=== PATIENT | male | born 1965 | race Hispanic/Latino ===

== ENCOUNTER 2019-09-11 13:56 | Outpatient (CLI) | payer OTHER ==
--- NOTE | 2019-09-11 15:31 | CT ---
CT Brain WO Con History: Hemorrhagic contusion Comparison: CT brain 2014 Findings: Left MCA territory encephalomalacia. There is also right frontal white matter encephalomala rusty and inferior right frontal lobe encephalomalacia. Ex vacuo dilatation of the ventricular system. No acute hemorrhage or infarct. No midline shift. No mass effect. Senile calcifications of both basal ganglia. The calvarium is intact. Old nasal bone fractures. Mastoids are clear. Old right frontal sinus fractu re. Globes are intact. No retrobulbar hematoma. Impression: Chronic findings. No acute intracranial abnormality.
== END 2019-09-11 13:57 | disposition home or self-care (01) ==
LOC: BICCT 13:56
PROVIDERS: ATTEND Neurological Surgery
DX: R58 Hemorrhage, not elsewhere classified (principal)
CPT/HCPCS: 70450

== ENCOUNTER 2020-07-14 08:25 | Inpatient (IN) | payer OTHER, SELFPAY ==
[2020-07-14] MEDS ORDERED: Lidocaine 1% (PF) 30 ML VIAL ONE ×2 (08:27→08:28)
[2020-07-14] MEDS ORDERED: Sodium Bicarb 50 MEQ/50 ML VIAL ONE (08:33)
[2020-07-14] MEDS ORDERED: Acetaminophen 325 MG Suppository ONE (08:34)
[2020-07-14] MEDS ORDERED: Acetaminophen 650 MG Suppository ONE (08:34)
[2020-07-14 08:53] LABS: Hemoglobin 15.3 g/dL (14.0-18.0); Mean Corpuscular HGB CONC 33.4 g/dL (32.0-36.0); Mean Corpuscular Hemoglobin 32.1 pg (27.0-31.0); Mean Corpuscular Volume 96.1 fL (78.0-98.0); Mean Platelet Volume 8.5 fL (7.4-10.4); Platelet Count 263 thou/uL (130-400); RBC Distribution Width 11.4 % (11.5-14.5); Red Blood Cell (RBC) Count 4.77 mill/uL (4.70-6.10)
[2020-07-14 09:15] LABS: ALT (SGPT) 35 U/L (8-55); AST (SGOT) 53 U/L (5-34); Albumin 3.8 g/dL (3.5-5.0); Alkaline Phosphatase 104 U/L (40-110); BUN (Urea Nitrogen) 6 mg/dL (8.4-25.7); Bilirubin, Total 0.5 mg/dL (0.2-1.2); CK (CPK) 166 U/L (30-200); Calc. Creatinine Clearance 0 mL/min (70-130); Calcium 8.8 mg/dL (7.8-10.44); Carbon Dioxide Less than 8 mmol/L (22-29); Chloride 107 mmol/L (98-107); Estimated GFR-MDRD 46; Globulin 4.2 g/dL (2.4-3.5); Glucose 275 mg/dL (70-105); Lipase 37 U/L (8-78); Potassium 4.2 mmol/L (3.5-5.1); Sodium 141 mmol/L (136-145)
[2020-07-14] MEDS ORDERED: Vancomycin 1 GM/200 ML BAG ONE (09:17)
[2020-07-14] MEDS ORDERED: Piperacillin/Tazobactam 4.5 GM VIAL ONE (09:17)
--- NOTE | 2020-07-14 09:17 | CT ---
CT Brain WO Con HISTORY: Epilepsy. Seizures COMPARISON: 09/11/2019 FINDINGS: Changes of encephalomalacia in the left MCA territory and in the right frontal lobe with ex vacuo dil atation of the ventricular system remains stable. Calcifications in the basal ganglia are again seen. No evidence of acute infarct, hemorrhage, midline shift or abnormal extra-axial fluid collections are seen. The bony calvarium is intact. The visualized paranasal sinuses and mastoid air cells are well-aerated. IMPRESSION: No CT evidence of acute intracranial process.
[2020-07-14 09:26] LABS: Bacteria/HPF None Seen HPF (None Seen); Bilirubin Negative (Negative); Blood, Urine 2+ (Negative); Clarity Turbid (Clear); Glucose, Urine (Dipstick) Normal (Negative); Ketone, Urine Trace mg/dL (Negative); Leukocyte Negative Leu/uL (Negative); Nitrite Negative (Negative); Protein, Urine (Dipstick) 200 mg/dL (Neg-Trace); RBC/HPF 0-3 HPF (0-3); Specific Gravity, Urine 1.011 (1.002-1.036); Squamous Epithelial 0-3 HPF (0-3); Urobilinogen Normal mg/dL (Less than 2); WBC/HPF None Seen HPF (0-3); pH, Urine 5.5 (5.0-9.0)
[2020-07-14 09:38] LABS: Band 14 % (5-11); Lymphocytes 31 % (21-51); MDiff Complete? YES; Metamyelocyte 1 % (0-0); Monocytes 4 % (0-10); Neutrophil 50 % (42-75); Platelet Morphology Comment Appears Adequate; RBC Morphology Normal
[2020-07-14 10:28] LABS: SARS-CoV-2 NAA Rapid Test Not Detected (NotDetected)
--- NOTE | 2020-07-14 10:33 | RAD ---
PORTABLE CHEST: Date: 07/14/2020 HISTORY: Seizure. No comparison. FINDINGS: Heart size upper normal. Mild vascular engorgement. No focal infiltrate or consolidation. I cannot ex clude right basilar atelectasis. No significant effusion apparent. Nonspecific stranding. IMPRESSION: No evidence of acute process. POS: OFF
--- NOTE | 2020-07-14 10:40 | PDOC.HHP ---
Hospitalist HPI - History of Present Illness Seizure History of Present Illness: This is a 54-year-old male patient resident of [facility] with a history of seizures, dementia, anemia and chronic alcoholism was brought into the ED on account of seizures and fever. He has been with a residential apparently since the past 3 days and not much information is known about him. He was found this morning to be having seizures and EMS was activated. There is no clear sign of any prodromal events illness history. He also does not have any immediate family member to be contacted. En route to the ED was noted by EMS to have ST elevations. Received 4 mg of Ativan which stopped his seizures At presentation his blood pressure 100/67, pulse 134, temperature 100.6, labs showed WBC 24.0, hemoglobin 15.3, platelets, bands 14, urine showed no indication of infection, lactic acid was 20.1, BMP sodium 141, potassium 4.3, bicarb less than 8, creatinine 1.59 from a baseline of 0.81 in 2013. Chest x- ray shows no acute changes CT brain shows no evidence of acute intracranial process He was given Keppra 1000 mg IV, vancomycin and Zosyn received 30 mils per KG IV fluids and Tylenol for fevers. Received 2 A of bicarb push. CardiologyDr. Parker was contacted on account of ST changes on EKG however concluded that this was due to right bundle branch block. No concerns for ACS at the moment. Hospitalist consulted for admission Hospitalist ROS - Review of Systems ROS unobtainable: due to mental status Hospitalist History - Past Medical History RIGHT OF WAY CLEARER: reports: Dementia, Seizure - Past Surgical History Other Surgical History: None of note at the moment - Social History Other Social History: Lives in nursing facility. - Exam General - other findings: Patient in bed, generally unresponsive. Eye - other findings: Pupils 4mm. Bilaterally constrict to light Heart: no murmur, no gallops, no rubs Heart - other findings: Tachycardic Respiratory: no wheezes, no rales, no ronchi Gastrointestinal: soft, non-distended, normal bowel sounds Neurological - other findings: Suppressed mentation. Withdraws limbs to painful sternal stimulus Hospitalist Results - Labs Result Diagrams: 07/16/20 15:11 07/17/20 04:53 Lab results: WBC 24.0 thou/uL (4.8-10.8) H 07/14/20 08:34 Hgb 15.3 g/dL (14.0-18.0) 07/14/20 08:34 Hct 45.8 % (42.0-52.0) 07/14/20 08:34 MCV 96.1 fL (78.0-98.0) 07/14/20 08:34 Plt Count 263 thou/uL (130-400) 07/14/20 08:34 Band Neuts % (Manual) 14 % (5-11) H 07/14/20 08:34 Sodium 141 mmol/L (136-145) 07/14/20 08:34 Potassium 4.2 mmol/L (3.5-5.1) 07/14/20 08:34 Chloride 107 mmol/L (98-107) 07/14/20 08:34 Carbon Dioxide Less than 8 mmol/L (22-29) L* 07/14/20 08:34 BUN 6 mg/dL (8.4-25.7) L 07/14/20 08:34 Creatinine 1.59 mg/dL (0.7-1.3) H 07/14/20 08:34 Glucose 275 mg/dL (70-105) H 07/14/20 08:34 Lactic Acid 20.1 mmol/L (0.5-2.2) H* 07/14/20 08:34 Calcium 8.8 mg/dL (7.8-10.44) 07/14/20 08:34 Total Bilirubin 0.5 mg/dL (0.2-1.2) 07/14/20 08:34 AST 53 U/L (5-34) H 07/14/20 08:34 ALT 35 U/L (8-55) 07/14/20 08:34 Alkaline Phosphatase 104 U/L (40-110) 07/14/20 08:34 Creatine Kinase 166 U/L (30-200) 07/14/20 08:34 Troponin I 0.012 ng/mL (< 0.028) 07/14/20 08:34 Serum Total Protein 8.0 g/dL (6.0-8.3) 07/14/20 08:34 Albumin 3.8 g/dL (3.5-5.0) 07/14/20 08:34 Lipase 37 U/L (8-78) 07/14/20 08:34 Urine Ketones Trace mg/dL (Negative) A 07/14/20 09:00 Urine Blood 2+ (Negative) A 07/14/20 09:00 Urine Nitrite Negative (Negative) 07/14/20 09:00 Ur Leukocyte Esterase Negative Maribel/uL (Negative) 07/14/20 09:00 Urine RBC 0-3 HPF (0-3) 07/14/20 09:00 Urine WBC None Seen HPF (0-3) 07/14/20 09:00 Ur Squamous Epith Cells 0-3 HPF (0-3) 07/14/20 09:00 Urine Bacteria None Seen HPF (None Seen) 07/14/20 09:00 Hospitalist H&P A/P - Plan Plan: Is a 54-year-old male patient brought in from a residential on account of seizures. Initial assessment indicate severe sepsis with metabolic encephalopathy. He was admitted to MICU. Acute encephalopathy Seizures versus severe sepsis. Protecting airways for nowno intubation. Also noted improvement since coming to the ED. Check B12, ammonia, alcohol levels, TSH Monitor in MICU Pulmonology consult if deteriorates. Severe sepsis Etiology currently unclear. Endorgan damageencephalopathy/LAMAR Leukocytosis, tachycardia We will continue on vancomycin and Zosyn Blood cultures pending Lactate 20.0we will trend Severe lactic acidosis May be related to sepsis however could also be due to seizures versus alcoholism No indication of recent alcohol use Received 2 A of bicarb in ED Check an ABG. Seizure disorder Given Keppra IVwe will continue We will consider neurology evaluation. LAMAR Likely secondary sepsis Given bolus We will monitor BMP Abnormal EKG changes Wide QRS complex tachycardia with PVCs Cardiology consultedno current concerns for NSTEMI Troponin remains flat. We will continue monitoring. History of alcoholism We will check blood alcohol levels DVT prophylaxisLovenox
[2020-07-14] MEDS ORDERED: levETIRAcetam in NS 100 ML IVPB SCH (11:00)
[2020-07-14 11:48] LABS: Actual Bicarbonate (HCO3a) 20.6 mEq/L (22-28); Analyzer IN Cardio ER; Base Excess (BEa) -2.2 mEq/L (-2.0 to +3.0); Calcium, Ionized (arterial) 1.13 mmol/L (1.12-1.30); Carboxyhemoglobin (COHb) 0.3 gm% (0.0-3.0); Hemoglobin (Hb) 16.2 g/dL (14.0-18.0); O2 Tension (PaO2), arterial 92.9 mmHg (80.0-100.0); Potassium - ABG Lab 3.01 mmol/L (3.70-5.30); pH, Arterial 7.44 (7.35-7.45)
[2020-07-14 11:49] LABS: Puncture Site RRA
[2020-07-14 13:01] LABS: Troponin I 0.264 ng/mL (< 0.028)
[2020-07-14 13:03] LABS: Thyroid Stimulating Hormone 0.7649 uIU/mL (0.35-4.94)
[2020-07-14] MEDS ORDERED: Heparin 10,000 UNITS/ 10 ML VIAL SLOW IVP SCH (14:30)
[2020-07-14] MEDS ORDERED: Heparin 25,000 units/D5W 500 ML IVPB SCH (14:30)
[2020-07-14] MEDS: Sodium Chloride 0.9% 1,000 ML IV SCH (14:31)
[2020-07-14 15:09] LABS: Hemoglobin 15.3 g/dL (14.0-18.0); Platelet Count 190 thou/uL (130-400)
[2020-07-14 15:48] LABS: Troponin I 0.375 ng/mL (< 0.028)
[2020-07-14] MEDS ORDERED: Acetaminophen 650 MG Suppository PR PRN (15:58)
[2020-07-14] MEDS: Piperacillin/Tazobactam 4.5 GM in Sodium Chloride 0.9% 100 ML IVPB SCH (17:07)
[2020-07-14 18:13] LABS: Amphetamine Not Detected (NotDetected); Barbiturates Screen Not Detected (NotDetected); Benzodiazepine Screen Detected (NotDetected); Cocaine Metabolite Screen Not Detected (NotDetected); Medtox Control Line Valid? VALID (VALID); Medtox Reader # READER 1; Methadone Not Detected (NotDetected); Methamphetamine Not Detected (NotDetected); Opiate Screen Not Detected (NotDetected); Oxycodone Screen Not Detected (NotDetected); Phencyclidine (PCP) Not Detected (NotDetected); THC/Cannabinoid Screen Not Detected (NotDetected); Tricyclic Screen Not Detected (NotDetected)
[2020-07-14] MEDS ORDERED: Vancomycin HCl 500 MG in Sodium Chloride 0.9% 100 ML IVPB SCH (19:00)
[2020-07-14] MEDS: levETIRAcetam in NS 1,000 MG in Premix Bag 1 BAG IVPB SCH (20:04)
[2020-07-14] MEDS ORDERED: Vancomycin 1 GM in Premix Bag 1 BAG IVPB SCH (20:15)
[2020-07-14] MEDS ORDERED: Enoxaparin Sodium 30 MG/0.3 ML SYRINGE SC SCH (21:00)
[2020-07-15] MEDS: Piperacillin/Tazobactam 4.5 GM in Sodium Chloride 0.9% 100 ML IVPB SCH ×3 (00:45→17:24)
[2020-07-15 01:34] LABS: PTT 147.1 sec (22.9-36.1)
[2020-07-15 04:14] LABS: Hemoglobin 14.4 g/dL (14.0-18.0); Mean Corpuscular HGB CONC 34.7 g/dL (32.0-36.0); Mean Corpuscular Hemoglobin 32.3 pg (27.0-31.0); Mean Corpuscular Volume 92.9 fL (78.0-98.0); Mean Platelet Volume 8.2 fL (7.4-10.4); Platelet Count 183 thou/uL (130-400); RBC Distribution Width 11.2 % (11.5-14.5); Red Blood Cell (RBC) Count 4.47 mill/uL (4.70-6.10); White Blood Cell (WBC) Count 11.5 thou/uL (4.8-10.8)
[2020-07-15 04:20] LABS: Anion Gap 15 mmol/L (10-20); BUN (Urea Nitrogen) 11 mg/dL (8.4-25.7); Calc. Creatinine Clearance 44 mL/min (70-130); Calcium 8.3 mg/dL (7.8-10.44); Carbon Dioxide 22 mmol/L (22-29); Chloride 111 mmol/L (98-107); Estimated GFR-MDRD 38; Glucose 110 mg/dL (70-105); Potassium 3.5 mmol/L (3.5-5.1); Sodium 144 mmol/L (136-145)
[2020-07-15 05:48] LABS: Band 6 % (5-11); Lymphocytes 16 % (21-51); MDiff Complete? YES; Monocytes 8 % (0-10); Neutrophil 70 % (42-75)
[2020-07-15] MEDS: Sodium Chloride 0.9% 1,000 ML IV SCH (07:36)
[2020-07-15] MEDS: levETIRAcetam in NS 1,000 MG in Premix Bag 1 BAG IVPB SCH ×2 (07:37→21:05)
--- NOTE | 2020-07-15 08:41 | CON ---
DATE OF CONSULTATION: HISTORY OF PRESENT ILLNESS: Bull Dupree is a 54-year-old male, resident of [facility]. He has history of seizures, dementia, anemia, and chronic alcoholism. Yesterday morning, he was found to have seizures. EMS was called. He received 4 mg of Ativan, which stopped his seizures. Initially, this was called as a STEMI; however, his EKG showed right bundle-branch block and no acute ST-segment changes. He has since had mildly elevated troponin I. The patient is unable to give any history. PAST MEDICAL HISTORY: Dementia, seizures, and chronic alcoholism. MEDICATIONS: 1. Calcium 1000 mg q.4 p.r.n. 2. Vitamin D3. 3. Colace 200 mg p.r.n. daily. 4. Folvite 1 mg daily. 5. Magnesium oxide 400 daily. 6. Multivitamin daily. 7. Thiamine 100 mg daily. ALLERGIES: NONE. SOCIAL HISTORY: Not obtainable. FAMILY HISTORY: Not obtainable. REVIEW OF SYSTEMS: Not obtainable. PHYSICAL EXAMINATION: VITAL SIGNS: Blood pressure 141/83 and pulse of 63. HEENT: PERRL. NECK: Supple. CHEST: Clear. CARDIAC: S1 and S2 normal without any S3, S4, or murmurs. ABDOMEN: Normal bowel sounds without tenderness. EXTREMITIES: Revealed no clubbing, cyanosis, or edema. NEUROLOGICAL: The patient does not respond to questions. He does not follow commands. LABORATORY DATA: EKG revealed sinus tachycardia with right bundle-branch block. White count 38591, hemoglobin 14.4, hematocrit 41.5, platelets 183,000. PTT 55.3. PH 7.44, pCO2 of 31.0, pO2 of 92.9. Sodium 144, potassium 3.5, chloride 111, carbon dioxide 22, BUN 11, creatinine 1.88. Troponin I is up to 0.375. TSH is normal. Ammonia is normal. Lactic acid was 20.1. IMPRESSION: 1. Seizures. 2. Dementia-the patient is unable to give any history at this time. 3. Chronic alcoholism. 4. Bqx-DM-umkhqiqor myocardial infarction type 2. 5. Metabolic acidosis. 6. Chronic kidney disease. PLAN: The patient is not a candidate for any further cardiac evaluation with his mental status except for an echo, which will be ordered. I feel that the heparin may be discontinued and he will be started on aspirin rectally since I doubt that he can adequately swallow with his current mental status. At the present time, he is on broad-spectrum antibiotics with vancomycin and Zosyn. Job ID: [id number] MTDD
[2020-07-15] MEDS ORDERED: Vancomycin HCl 1.5 GM in Sodium Chloride 0.9% 250 ML 300 ML IVPB SCH (10:00)
[2020-07-15] MEDS: Vancomycin 1.5 GRAM/300 ML BAG 1.5 GM in Premix Bag 1 BAG IVPB SCH (10:31)
[2020-07-15] MEDS: Aspirin 300 MG Suppository PR SCH (10:31)
--- NOTE | 2020-07-15 12:38 | CON ---
NEUROLOGY CONSULTATION DATE OF CONSULTATION: 07/15/2020 REASON FOR CONSULTATION: Breakthrough seizure. HISTORY OF PRESENT ILLNESS: Mr. Fadi Dupree is a 54-year-old male who is a resident of [facility] with history significant for epilepsy, dementia, anemia and chronic alcoholism, brought to the emergency room with seizures and fever. According to the senior care staff, since the past the past 3 days he has not been feeling well and yesterday morning. He was found to have some breakthrough seizures, so EMS were activated and he was brought to the emergency room for further evaluation. Per senior care staff, he was on Keppra at senior care, but for some reason that was taken off, which resulted in breakthrough seizures. In the emergency room, he was given Keppra 1000 mg IV and started on vancomycin and Zosyn and Cardiology was contacted, because of ST changes on EKG which was later included they were due to right bundle-branch block and no concerns of acute coronary syndrome at the moment. He was admitted for further evaluation. REVIEW OF SYSTEMS: Unobtainable due to patient mental status. PAST MEDICAL HISTORY: Dementia, epilepsy, chronic alcoholism. PAST SURGICAL HISTORY: None. SOCIAL HISTORY: The patient lives in a senior care facility. ALLERGIES: No known drug allergies PHYSICAL EXAMINATION: 141/79 70 16 GENERAL: The patient in bed, he is alert, awake, not following commands, but does maintain eye contact. CVS: Regular rate and rhythm. CHEST: Clear. ABDOMEN: Soft. NECK: Supple. NEUROLOGIC: Mental status, the patient is alert, awake, but does not follow commands. He purposely resists when you try to examine. MOTOR: Cranial nerves, pupils 4 mm, round and reactive to light. Face symmetric. Tongue midline. Moves neck in both direction. Motor, muscle tone and bulk are normal. Moving all 4 extremities equally and symmetrically. Sensory withdraws to nailbed pressure bilaterally. Cerebellar, did not cooperate with the exam. Gait deferred due to patient's safety reason. DATA REVIEWED: I reviewed the initial labs, which were significant for hyperglycemia Lab results: WBC 24.0 thou/uL (4.8-10.8) H 07/14/20 08:34 Hgb 15.3 g/dL (14.0-18.0) 07/14/20 08:34 Hct 45.8 % (42.0-52.0) 07/14/20 08:34 MCV 96.1 fL (78.0-98.0) 07/14/20 08:34 Plt Count 263 thou/uL (130-400) 07/14/20 08:34 Band Neuts % (Manual) 14 % (5-11) H 07/14/20 08:34 Sodium 141 mmol/L (136-145) 07/14/20 08:34 Potassium 4.2 mmol/L (3.5-5.1) 07/14/20 08:34 Chloride 107 mmol/L (98-107) 07/14/20 08:34 Carbon Dioxide Less than 8 mmol/L (22-29) L* 07/14/20 08:34 BUN 6 mg/dL (8.4-25.7) L 07/14/20 08:34 Creatinine 1.59 mg/dL (0.7-1.3) H 07/14/20 08:34 Glucose 275 mg/dL (70-105) H 07/14/20 08:34 Lactic Acid 20.1 mmol/L (0.5-2.2) H* 07/14/20 08:34 Calcium 8.8 mg/dL (7.8-10.44) 07/14/20 08:34 Total Bilirubin 0.5 mg/dL (0.2-1.2) 07/14/20 08:34 AST 53 U/L (5-34) H 07/14/20 08:34 ALT 35 U/L (8-55) 07/14/20 08:34 Alkaline Phosphatase 104 U/L (40-110) 07/14/20 08:34 Creatine Kinase 166 U/L (30-200) 07/14/20 08:34 Troponin I 0.012 ng/mL (< 0.028) 07/14/20 08:34 Serum Total Protein 8.0 g/dL (6.0-8.3) 07/14/20 08:34 Albumin 3.8 g/dL (3.5-5.0) 07/14/20 08:34 Lipase 37 U/L (8-78) 07/14/20 08:34 Urine Ketones Trace mg/dL (Negative) A 07/14/20 09:00 Urine Blood 2+ (Negative) A 07/14/20 09:00 Urine Nitrite Negative (Negative) 10/12/20 09:00 Ur Leukocyte Esterase Negative Maribel/uL (Negative) 07/14/20 09:00 Urine RBC 0-3 HPF (0-3) 07/14/20 09:00 Urine WBC None Seen HPF (0-3) 07/14/20 09:00 Ur Squamous Epith Cells 0-3 HPF (0-3) 07/14/20 09:00 Urine Bacteria None Seen HPF (None Seen) 07/14/20 09:00 ASSESSMENT AND PLAN: Mr. Dupree is a 54-year-old male who was brought from the emergency room, because of seizures. He was restarted on Keppra 1000 mg twice daily. Continue Keppra 1000 mg twice daily. Observe seizure precautions. Ativan 2 mg IV for seizure greater than 2 minutes. Neuro checks every 4 hours. Continue telemetry. EEG completed and reviewed. EEG was consistent with moderate, generalized, nonspecific cerebral dysfunction, but negative for seizure activity. Continue medical management per primary team. PT/OT/speech when stable. Deep venous thrombosis prophylaxis, we will continue to follow. Thank you for the consult. Job ID: [id number] [facility]
--- NOTE | 2020-07-15 17:18 | PDOC.HOSPP ---
- Subjective Encounter Date: 07/15/20 non-verbal - Objective Vital Signs & Weight: Vital Signs (12 hours) Temp Pulse Ox 07/15/20 11:12 97.3 F L 07/15/20 08:00 97 07/15/20 07:58 97.5 F L Weight Weight 149 lb 9.6 oz Most Recent Monitor Data Heart Rate from ECG 74 NIBP 121/78 NIBP BP-Mean 92 Respiration from ECG 13 SpO2 100 I&O: 07/14/20 07/15/20 07/16/20 06:59 06:59 06:59 Intake Total 1800 Output Total 650 Balance 1150 Result Diagrams: 07/15/20 03:39 07/15/20 03:39 Hospitalist ROS - Medication Medications: Active Medications Generic Name Dose Route Start Last Admin Trade Name Freq PRN Reason Stop Dose Admin Acetaminophen 650 mg 07/14/20 15:58 07/14/20 17:08 Acetaminophen 650 Mg Suppository [place] 650 mg Q4H PRN Administration Headache/Fever or Pain Aspirin 300 mg 07/15/20 09:00 07/15/20 10:31 Aspirin 300 Mg Suppository [place] 300 mg DAILY LILIANA Administration Sodium Chloride 1,000 mls @ 50 mls/hr 07/14/20 11:15 07/15/20 07:36 Normal Saline 0.9% IV 1,000 mls .Q20H LILIANA Administration Piperacillin Sod/Tazobactam 100 mls @ 200 mls/hr 07/14/20 17:00 07/15/20 07:35 Sod 4.5 gm/ Sodium Chloride IVPB 100 mls 0100,0900,1700 LILIANA Administration Levetiracetam 1,000 mg/ Device 100 mls @ 200 mls/hr 07/14/20 21:00 07/15/20 07:37 IVPB 100 mls BID LILIANA Administration Vancomycin HCl 1.5 gm/ Device 300 mls @ 200 mls/hr 07/15/20 10:00 07/15/20 10:31 IVPB 300 mls 1000 LILIANA Administration - Exam General Appearance: NAD, awake alert Heart: RRR, no murmur, no gallops, no rubs, normal peripheral pulses Respiratory: CTAB, no wheezes, no rales, no ronchi, normal chest expansion, no tachypnea, normal percussion Gastrointestinal: soft, non-tender, non-distended, normal bowel sounds, no palpable masses, no hepatomegaly, no splenomegaly, no bruit Extremities: no cyanosis, no clubbing, no edema Skin: normal turgor Musculoskeletal: generalized weakness Psychiatric: somnolent Psychiatric - other findings: Did make eye contact. Nonverbal. Hosp A/P (1) Seizure Code(s): R56.9 - UNSPECIFIED CONVULSIONS Status: Acute (2) Myocardial infarction Code(s): I21.9 - ACUTE MYOCARDIAL INFARCTION, UNSPECIFIED Status: Acute Qualifiers: Myocardial infarction type: type 2 Qualified Code(s): I21.A1 - Myocardial infarction type 2 (3) Dementia Code(s): F03.90 - UNSPECIFIED DEMENTIA WITHOUT BEHAVIORAL DISTURBANCE Status: Acute (4) History of alcoholism Code(s): F10.21 - ALCOHOL DEPENDENCE, IN REMISSION Status: Acute (5) Lactic acidosis Code(s): E87.2 - ACIDOSIS Status: Acute - Plan Seizure: Patient has been evaluated by neurology. Continue with Keppra 1000 mg p.o. twice daily. Will transition to p.o. if he can swallow effectively. EEG was accomplished. No further work-up pending. NSTEMI type II: Largely secondary to the patient's seizure. Given his encephalopathy cardiology does not recommend any further evaluation. Appears to be otherwise stable. He was initially on a heparin drip that has been discontinued. Lactic acidosis: Likely secondary to hypoxia from seizure. History of alcoholism with related dementia: Patient was at a nursing facility. He will likely need to return there once he leaves here. Encephalopathy: Acute metabolic. Likely secondary to postictal phase and underlying dementia. Will get speech to evaluate his ability to swallow. Disposition: The patient is able to swallow effectively and we can transition his medications over to p.o. he can likely return to his facility.
[2020-07-16] MEDS: Piperacillin/Tazobactam 4.5 GM in Sodium Chloride 0.9% 100 ML IVPB SCH ×3 (01:03→18:18)
[2020-07-16] MEDS: Sodium Chloride 0.9% 1,000 ML IV SCH ×2 (03:42→18:57)
[2020-07-16] MEDS: levETIRAcetam in NS 1,000 MG in Premix Bag 1 BAG IVPB SCH (07:39)
[2020-07-16] MEDS: Aspirin 300 MG Suppository PR SCH (07:40)
--- NOTE | 2020-07-16 08:22 | EEG ---
DATE OF SERVICE: 07/15/2020 ATTENDING PHYSICIAN: Ana Roberson MD. REASON FOR CONSULTATION: Seizures. This EEG was performed using 24-channel Razer video digital EEG machine with 24-disk electrodes. This was an extended 2 hours 6 minutes of inpatient video EEG recording. Digital analysis of the EEG was done for spike and seizure detection, which revealed no abnormalities. BACKGROUND: The posterior background rhythm was not observed. HYPERVENTILATION: Not performed. PHOTIC STIMULATION: Not performed. SLEEP: Drowsiness and sleep are observed. EEG DIAGNOSES: 1. Intermittent irregular theta activity seen throughout the recording. 2. Absence of posterior background rhythm. CLINICAL INTERPRETATION: This EEG is consistent with moderate generalized nonspecific cerebral dysfunction. Job ID: [id number]
[2020-07-16] MEDS ORDERED: Regadenoson 0.4 MG/5 ML SYRINGE ONE (08:32)
[2020-07-16] MEDS ORDERED: Clopidogrel Bisulfate 75 MG TAB ONE (09:22)
[2020-07-16] MEDS: Vancomycin 1.5 GRAM/300 ML BAG 1.5 GM in Premix Bag 1 BAG IVPB SCH (09:32)
--- NOTE | 2020-07-16 14:01 | NM ---
EXAM: CARDIAC SPECT HISTORY: Elevated troponin, hypertension TECHNIQUE: A myocardial perfusion scan was performed using the single isotope 1 day protocol with gavin hnetium 99m sestamibi. [10 mCi] was injected intravenously for the rest exam followed by 33 mCifor the stress study. Pharmacologic stress with Lexiscan was monitored and interpreted by the nurse practitioner FINDINGS: Homogeneous tracer distribution is seen in the myocardial segments on stress and rest image s without fixed or reversible defects. Gated SPECT LVEF: 82% Wall motion exam: Normal IMPRESSION: Normal myocardial perfusion scan
[2020-07-16 15:38] LABS: Hemoglobin 14.6 g/dL (14.0-18.0); Platelet Count 188 thou/uL (130-400)
--- NOTE | 2020-07-16 17:24 | PDOC.HOSPP ---
- Subjective Encounter Date: 07/16/20 Encounter Time: 17:20 Subjective: f/u for seizure/lactic acidosis and NSTEMI II due to hypoxia and seizure. Completed Cardiolite without evidence of ischemia. - Objective Vital Signs & Weight: Vital Signs (12 hours) Temp Pulse Resp BP Pulse Ox 07/16/20 15:30 97.5 F L 85 18 144/79 H 100 07/16/20 08:00 100 Weight Weight 149 lb 9.6 oz Most Recent Monitor Data Heart Rate from ECG 74 NIBP 148/83 NIBP BP-Mean 104 Respiration from ECG 13 SpO2 100 I&O: 07/15/20 07/16/20 07/17/20 06:59 06:59 06:59 Intake Total 3450 Output Total 2900 Balance 550 Result Diagrams: 07/16/20 15:11 07/15/20 03:39 Additional Labs: Laboratory Tests 07/14/20 07/14/20 07/14/20 08:34 08:34 08:34 WBC 24.0 H Creatinine 1.59 H Lactic Acid 20.1 H* Ammonia Vitamin B12 TSH 3rd Generation 07/14/20 07/14/20 07/14/20 11:57 11:57 11:57 WBC Creatinine Lactic Acid 4.0 H Ammonia 38 Vitamin B12 704 TSH 3rd Generation 0.7649 07/15/20 03:39 WBC Creatinine 1.88 H Lactic Acid Ammonia Vitamin B12 TSH 3rd Generation Microbiology 07/14/20 09:00 Urine Straight Catheter Urine Culture - Final NO GROWTH AT 48 HOURS 07/14/20 08:41 Venous blood - Left Hand Blood Culture - Preliminary Coagulase Neg Staphylococcus 07/14/20 08:41 Venous blood - Left Arm Blood Culture - Preliminary NO GROWTH AT 48 HOURS Radiology Reviewed by me: Yes (Cardiolite - negative, EF 82%) EKG Reviewed by me: Yes (Tele - SR) Hospitalist ROS - Medication Medications: Active Medications Generic Name Dose Route Start Last Admin Trade Name Freq PRN Reason Stop Dose Admin Acetaminophen 650 mg 07/14/20 15:58 07/14/20 17:08 Acetaminophen 650 Mg Suppository [place] 650 mg Q4H PRN Administration Headache/Fever or Pain Aspirin 300 mg 07/15/20 09:00 07/16/20 07:40 Aspirin 300 Mg Suppository [place] 300 mg DAILY LILIANA Administration Sodium Chloride 1,000 mls @ 50 mls/hr 07/14/20 11:15 07/16/20 03:42 Normal Saline 0.9% IV Not Given .Q20H LILIANA Piperacillin Sod/Tazobactam 100 mls @ 200 mls/hr 07/14/20 17:00 07/16/20 07:39 Sod 4.5 gm/ Sodium Chloride IVPB 100 mls 0100,0900,1700 LILIANA Administration Levetiracetam 1,000 mg/ Device 100 mls @ 200 mls/hr 07/14/20 21:00 07/16/20 07:39 IVPB 100 mls BID LILIANA Administration Vancomycin HCl 1.5 gm/ Device 300 mls @ 200 mls/hr 07/15/20 10:00 07/16/20 09:32 IVPB 300 mls 1000 LILIANA Administration - Exam General Appearance: NAD, awake alert Eye: PERRL, anicteric sclera ENT: normocephalic atraumatic, no oropharyngeal lesions Neck: supple, symmetric, no JVD, no thyromegaly, no lymphadenopathy Heart: RRR, no murmur, no gallops, no rubs, normal peripheral pulses Heart - other findings: S1, S2 Respiratory: CTAB, no wheezes, no rales, no ronchi, normal chest expansion, no tachypnea Gastrointestinal: soft, non-tender, non-distended, normal bowel sounds, no palpable masses Extremities: no cyanosis, no clubbing, no edema Skin: normal turgor Neurological: cranial nerve grossly intact, no new deficit Psychiatric: oriented to person, oriented to place, flat affect Hosp A/P (1) Seizure Code(s): R56.9 - UNSPECIFIED CONVULSIONS Status: Acute Plan: Continue Keppra 1000mg BID, seizure precautions (2) Type 2 myocardial infarction Code(s): I21.A1 - MYOCARDIAL INFARCTION TYPE 2 Status: Acute Plan: Likely due to demand ischemia in context of seizure, med mgmt, DICE MANAGER negative (3) Lactic acidosis Code(s): E87.2 - ACIDOSIS Status: Acute Plan: Secondary to #1 (4) LAMAR (acute kidney injury) Code(s): N17.9 - ACUTE KIDNEY FAILURE, UNSPECIFIED Status: Acute Plan: Continue IVF's, avoid nephrotoxic meds and limit contrast exposure (5) Dementia Code(s): F03.90 - UNSPECIFIED DEMENTIA WITHOUT BEHAVIORAL DISTURBANCE Status: Chronic Plan: Likely due to ETOH abuse (6) Alcohol abuse Code(s): F10.10 - ALCOHOL ABUSE, UNCOMPLICATED Status: Chronic Plan: Resume MVI/Folate/Thiamine - Plan geriatric social worker, out of bed/ambulate, DVT proph w/SCDs Stable currently Resume MVI/Thiamine/Folate Continue Keppra 1000mg BID CM for dispo planning Likely to return to [place] 07/17/20 Increase IVF's 100ml/h AM lab: BMP, H/H, Vanc level
[2020-07-16] MEDS: levETIRAcetam 500 MG TAB PO SCH (21:16)
[2020-07-17] MEDS: Sodium Chloride 0.9% 1,000 ML IV SCH ×2 (04:01→14:16)
[2020-07-17 05:38] LABS: Anion Gap 12 mmol/L (10-20); BUN (Urea Nitrogen) 12 mg/dL (8.4-25.7); Calc. Creatinine Clearance 64 mL/min (70-130); Calcium 8.1 mg/dL (7.8-10.44); Carbon Dioxide 22 mmol/L (22-29); Chloride 112 mmol/L (98-107); Estimated GFR-MDRD 58; Glucose 83 mg/dL (70-105); Potassium 3.1 mmol/L (3.5-5.1); Sodium 143 mmol/L (136-145)
[2020-07-17 05:39] LABS: Vancomycin, Random 16.1 ug/mL (See Comment)
[2020-07-17] MEDS ORDERED: Thiamine 100 MG TAB PO SCH (09:00)
[2020-07-17] MEDS ORDERED: Multivitamin W/ Minerals 1 TAB PO SCH (09:00)
[2020-07-17] MEDS ORDERED: Folic Acid 1 MG TAB PO SCH (09:00)
[2020-07-17] MEDS ORDERED: Aspirin 81 mg Enteric Coated Tablet PO SCH (09:00)
[2020-07-17] MEDS ORDERED: Magnesium Oxide 400 MG TAB PO SCH (09:00)
[2020-07-17] MEDS: levETIRAcetam 500 MG TAB PO SCH (09:32)
[2020-07-17 11:41] VITALS: BP 108/67; TEMP 98.2
--- NOTE | 2020-07-17 13:54 | PDOC.NEUPN ---
- Subjective Encounter Date: 07/17/20 Subjective: Patient has no complaints overnight when examined this morning - Objective Vital Signs & Weight: Vital Signs (12 hours) Temp Pulse Resp BP Pulse Ox 07/17/20 11:40 98.2 F 66 12 108/67 98 07/17/20 08:41 96 07/17/20 04:04 98.8 F 54 L 18 130/62 96 Weight Weight 149 lb 9.6 oz Most Recent Monitor Data Heart Rate from ECG 74 NIBP 148/83 NIBP BP-Mean 104 Respiration from ECG 13 SpO2 100 I&O: 07/16/20 07/17/20 07/18/20 06:59 06:59 06:59 Intake Total 3450 2735 Output Total 2900 2450 2200 Balance 550 285 -2200 Result Diagrams: 07/16/20 15:11 07/17/20 04:53 Radiology Reviewed by me: Yes EKG Reviewed by me: Yes ROS - Review of Systems ROS unobtainable: due to mental status - Medication Medications: Active Medications Generic Name Dose Route Start Last Admin Trade Name Freq PRN Reason Stop Dose Admin Acetaminophen 650 mg 07/14/20 15:58 07/14/20 17:08 Acetaminophen 650 Mg Suppository WA 650 mg Q4H PRN Administration Headache/Fever or Pain Aspirin 81 mg 07/17/20 09:00 07/17/20 09:32 Aspirin 81 Mg Enteric Coated Tablet PO 81 mg DAILY LILIANA Administration Folic Acid 1 mg 07/17/20 09:00 07/17/20 09:32 Folic Acid 1 Mg Tab PO 1 mg DAILY LILIANA Administration Sodium Chloride 1,000 mls @ 100 mls/hr 07/16/20 17:39 07/17/20 04:01 Normal Saline 0.9% IV 1,000 mls .Q10H LILIANA Administration Iron/Minerals/Multivitamins 1 tab 07/17/20 09:00 07/17/20 09:33 Multivitamin W/ Minerals 1 Tab PO 1 tab DAILY LILIANA Administration Levetiracetam 1,000 mg 07/16/20 21:00 07/17/20 09:32 Levetiracetam 500 Mg Tab PO 1,000 mg BID LILIANA Administration Magnesium Oxide 400 mg 07/17/20 09:00 07/17/20 09:33 Magnesium Oxide 400 Mg Tab PO 400 mg DAILY LILIANA Administration Thiamine HCl 100 mg 07/17/20 09:00 07/17/20 09:33 Thiamine 100 Mg Tab PO 100 mg DAILY LILIANA Administration - Exam General Appearance: awake alert Eye: PERRL ENT: normocephalic atraumatic Neck: supple Respiratory: CTAB Cardiovascular: RRR Gastrointestinal: soft Extremities: no cyanosis Skin: normal turgor Neurological: no new deficit Musculoskeletal: normal tone, no muscle wasting PSYCH: normal affect, normal behavior, oriented to person Results - Labs Result Diagrams: 07/16/20 15:11 07/17/20 04:53 Lab results: WBC 11.5 thou/uL (4.8-10.8) H 07/15/20 03:39 Hgb 14.6 g/dL (14.0-18.0) 07/16/20 15:11 Hct 42.8 % (42.0-52.0) 07/16/20 15:11 MCV 92.9 fL (78.0-98.0) 07/15/20 03:39 Plt Count 188 thou/uL (130-400) 07/16/20 15:11 Band Neuts % (Manual) 6 % (5-11) 07/15/20 03:39 ABG pH 7.44 (7.35-7.45) 07/14/20 11:36 ABG pCO2 31.0 mmHg (35.0-45.0) L 07/14/20 11:36 ABG pO2 92.9 mmHg (80.0-100.0) 07/14/20 11:36 Sodium 143 mmol/L (136-145) 07/17/20 04:53 Potassium 3.1 mmol/L (3.5-5.1) L 07/17/20 04:53 Chloride 112 mmol/L (98-107) H 07/17/20 04:53 Carbon Dioxide 22 mmol/L (22-29) 07/17/20 04:53 BUN 12 mg/dL (8.4-25.7) 07/17/20 04:53 Creatinine 1.29 mg/dL (0.7-1.3) 07/17/20 04:53 Glucose 83 mg/dL (70-105) 07/17/20 04:53 Lactic Acid 4.0 mmol/L (0.5-2.2) H 07/14/20 11:57 Calcium 8.1 mg/dL (7.8-10.44) 07/17/20 04:53 Total Bilirubin 0.5 mg/dL (0.2-1.2) 07/14/20 08:34 AST 53 U/L (5-34) H 07/14/20 08:34 ALT 35 U/L (8-55) 07/14/20 08:34 Alkaline Phosphatase 104 U/L (40-110) 07/14/20 08:34 Ammonia 38 umol/L (18-72) 07/14/20 11:57 Creatine Kinase 166 U/L (30-200) 07/14/20 08:34 Troponin I 0.375 ng/mL (< 0.028) H* 07/14/20 14:59 Serum Total Protein 8.0 g/dL (6.0-8.3) 07/14/20 08:34 Albumin 3.8 g/dL (3.5-5.0) 07/14/20 08:34 Lipase 37 U/L (8-78) 07/14/20 08:34 Urine Ketones Trace mg/dL (Negative) A 07/14/20 09:00 Urine Blood 2+ (Negative) A 07/14/20 09:00 Urine Nitrite Negative (Negative) 07/14/20 09:00 Ur Leukocyte Esterase Negative Maribel/uL (Negative) 07/14/20 09:00 Urine RBC 0-3 HPF (0-3) 07/14/20 09:00 Urine WBC None Seen HPF (0-3) 07/14/20 09:00 Ur Squamous Epith Cells 0-3 HPF (0-3) 07/14/20 09:00 Urine Bacteria None Seen HPF (None Seen) 07/14/20 09:00 - Radiology Interpretation CT scan - head Status: image reviewed by me, report reviewed by me Additional Comment: Head CT negative for acute intracranial pathology. PN A/P (1) Seizure Code(s): R56.9 - UNSPECIFIED CONVULSIONS Status: Acute (2) LAMAR (acute kidney injury) Code(s): N17.9 - ACUTE KIDNEY FAILURE, UNSPECIFIED Status: Acute (3) History of alcoholism Code(s): F10.21 - ALCOHOL DEPENDENCE, IN REMISSION Status: Acute (4) Myocardial infarction Code(s): I21.9 - ACUTE MYOCARDIAL INFARCTION, UNSPECIFIED Status: Acute Qualifiers: Myocardial infarction type: type 2 Qualified Code(s): I21.A1 - Myocardial infarction type 2 (5) Alcohol abuse Code(s): F10.10 - ALCOHOL ABUSE, UNCOMPLICATED Status: Chronic (6) Dementia Code(s): F03.90 - UNSPECIFIED DEMENTIA WITHOUT BEHAVIORAL DISTURBANCE Status: Chronic - Plan Daily Plan: PT/OT, speech therapy, DVT proph w/SCDs 54-year-old male with history significant for alcohol abuse, dementia, chronic kidney disease and epilepsy presented with breakthrough seizures due to noncompliance with Keppra. Head CT reviewed and was negative for acute intracranial pathology. EEG reviewed and was negative for seizure activity. Neurochecks every 4 hours. Continue Keppra 1000 mg p.o. twice daily. Ativan 2 mg IV for seizure greater than 2 minutes. 2D echocardiography showed the ejection fraction 55 to 60%. No thrombus or PFO. Cardiac stress test did not reveal ischemia. Observe seizure precautions. Continue home medications. Continue medical management per primary team cardiology. Plan discussed during MDR rounds.
--- NOTE | 2020-07-18 01:38 | DIS ---
DATE OF ADMISSION: 07/14/2020 DATE OF DISCHARGE: 07/17/2020 DISCHARGE DIAGNOSES: 1. Seizures, improved. 2. Type 2 myocardial infarction due to demand ischemia in the context of #1. 3. Lactic acidosis secondary to #1. 4. Acute kidney injury, resolved. 5. Dementia, multifactorial, including alcoholism. 6. Chronic alcohol abuse. CONSULTATIONS: 1. Dr. Roberson with Neurology Service. 2. Dr. Krish Parker with Cardiology Service. PERTINENT LABORATORY AND X-RAY FINDINGS: Potassium ranged between 3.1 to 4.2. Creatinine ranged between 1.29 to 1.88. Estimated GFR ranged between 46 to 58. Lactic acid level ranged between 4.0 to 20.1. Troponin I ranged between 0.012 to 0.375. Ammonia level 38. Vitamin B12 level 704. TSH 0.76. Lipase 37. CBC showed a white blood cell count ranging between 11.5 to 24.0. Urine drug screen dated 07/14/2020, positive for benzodiazepines. Plasma alcohol level less than 10. COVID-19 PCR not detected on 07/14/2020. Blood cultures x2 dated 07/14/2020, showed 1/2 positive for coagulase-negative Staphylococcus skin contaminant. Urine culture dated 07/14/2020, showed no growth at 48 hours. Portable chest x-ray dated 07/14/2020, showed no acute cardiopulmonary process. CT of the brain without contrast dated 07/14/2020, showed no acute intracranial process. EEG dated 07/14/2020, showed moderate generalized nonspecific cerebral dysfunction. 2D transthoracic echocardiogram dated 07/15/2020, showed ejection fraction of 55% to 60%. Diastolic dysfunction noted. Cardiolite stress test dated 07/16/2020, showed normal myocardial perfusion scan, calculated ejection fraction 82%. HOSPITAL COURSE: The patient was initially admitted after presenting with seizure activity in the context of chronic alcoholism and with dementia. The patient initially received IV Ativan and underwent CT imaging of the brain showing no acute process. The patient was also given Keppra 1000 mg b.i.d., in addition to empiric antibiotic coverage with vancomycin and Zosyn. The patient was noted with profound lactic acidosis at the time of admission; however, this was consistent with the patient's seizure activity. The patient was also noted with elevated troponin I, consistent with demand ischemia; however, Cardiology was consulted with recommendations to undergo echocardiogram and Cardiolite stress testing. The Cardiolite stress test did not show any evidence of reversible or fixed ischemia with calculated ejection fraction of 82%. 2D transthoracic echocardiogram was also performed showing overall preserved ejection fraction with diastolic dysfunction. The patient continued on Keppra 1000 mg b.i.d. without recurrent seizure activity noted. EEG evaluation showed nonspecific cerebral dysfunction and no active seizures. Overall, the patient did remain clinically stable during the hospital course, tolerating regular oral intake. The patient remained confused and oriented only to person and place. I have examined the patient at the time of discharge and discussed followup instructions. The patient ready for discharge on 07/17/2020. DISCHARGE MEDICATIONS: 1. Calcium carbonate 1000 mg p.o. q.6 hours p.r.n. 2. Docusate sodium 200 mg p.o. daily. 3. Folic acid 1 mg p.o. daily. 4. Magnesium oxide 400 mg p.o. daily. 5. Multivitamin 1 tablet p.o. daily. 6. Thiamine 100 mg p.o. daily. 7. Vitamin D3 2000 units p.o. daily. 8. Enteric-coated aspirin 81 mg p.o. daily. 9. Keppra 1000 mg p.o. b.i.d. FOLLOWUP: The patient may follow up with [facility] in [place], [place]. CONDITION ON DISCHARGE: Guarded. ACTIVITY: Ad delmy. Rolling walker with standby assistance. DIET: Regular. CODE STATUS: Full. DISPOSITION: Discharged to [facility] on 07/17/2020. TIME SPENT: Total time preparing and coordinating discharge is 33 minutes. Job ID: [id number]
--- NOTE | 2020-07-19 13:25 | EKG ---
Test Reason : AMS Blood Pressure : / mmHG Vent. Rate : 151 BPM Atrial Rate : 156 BPM P-R Int : 000 ms QRS Dur : 128 ms QT Int : 310 ms P-R-T Axes : 000 023 035 degrees QTc Int : 491 ms Wide QRS tachycardia with occasional Premature ventricular complexes Right bundle branch block Abnormal ECG Confirmed by MARIANN BERNAL DO ([id number]), non linear editor IMER IRIZARRY ([id number]) on 07/19/2020 1:25:10 PM Referred By: GABE Confirmed By:MARIANN BERNAL DO
--- NOTE | 2020-07-19 13:25 | EKG ---
Test Reason : SEPSIS Blood Pressure : / mmHG Vent. Rate : 111 BPM Atrial Rate : 111 BPM P-R Int : 168 ms QRS Dur : 136 ms QT Int : 376 ms P-R-T Axes : 042 016 021 degrees QTc Int : 511 ms Sinus tachycardia Right bundle branch block Abnormal ECG Confirmed by MARIANN BERNAL DO ([id number]), slot editor IMER IRIZARRY ([id number] on 07/19/2020 1:25:19 PM Referred By: Confirmed By:MARIANN BERNAL DO
== END 2020-07-17 17:33 | DRG 100 ==
LOC: ERS 08:25 → IMCU/EMU 12:29 → 2SE 07-16 16:11
PROVIDERS: ADMIT Student in an Organized Health Care Education/Training Program; ATTEND Student in an Organized Health Care Education/Training Program
DX: G40.909 Epilepsy, unspecified, not intractable, without status epilepticus (principal); G93.41 Metabolic encephalopathy; I21.A1 Myocardial infarction type 2; R65.20 Severe sepsis without septic shock; E87.2 Acidosis; N17.9 Acute kidney failure, unspecified; D64.9 Anemia, unspecified; R77.8 Other specified abnormalities of plasma proteins; R09.02 Hypoxemia; N18.9 Chronic kidney disease, unspecified; F10.10 Alcohol abuse, uncomplicated; R94.31 Abnormal electrocardiogram [ECG] [EKG]; F03.90 Unspecified dementia, unspecified severity, without behavioral disturbance, psychotic disturbance, mood disturbance, and anxiety; I12.9 Hypertensive chronic kidney disease with stage 1 through stage 4 chronic kidney disease, or unspecified chronic kidney disease; Z79.899 Other long term (current) drug therapy; Z20.828 Contact with and (suspected) exposure to other viral communicable diseases
CPT/HCPCS: 36415; 51702; 70450; 71045; 78452; 80048; 80053; 80202; 80306; 80307; 81003; 81015; 82140; 82550; 82607; 82805; 83605; 83690; 84443; 84484; 85007; 85014; 85018; 85025; 85027; 85049; 85730; 87040; 87077; 87086; 87149; 87186; 93005; 93017; 93306; 94760; 95712; 95816; 95819; 95957; 96365; 96367; 96375; A9500; J1644; J1953; J2001; J2543; J2785; J3370; J3490; U0002